=== PATIENT | female | born 1940 | race Caucasian/White ===

== ENCOUNTER 2017-10-10 15:04 | Emergency (ER) | payer MEDICARE, BC ==
--- NOTE | 2017-10-10 16:55 | CT ---
CT BRAIN WITHOUT CONTRAST: 10/10/17 HISTORY: Multiple falls, pain in the head and neck. FINDINGS: No evidence of acute infarct, hemorrhage, midline shift or abnormal extra-axial fluid collections see n. The ventricular size is greater than expected for the degree of atrophy. The basilar cisterns sheets nt. The bony calvarium is intact. The visualized paranasal sinuses and mastoid air cells are well aer ated. IMPRESSION: 1. No CT evidence of acute intracranial process. 2. Possibility of normal pressure hydrocephalus should be considered. POS: [facility]
[2017-10-10 17:00] LABS: #Basophils 0.1 thou/uL (0.0-0.2); #Eosinphils 0.2 thou/uL (0.0-0.7); #Lymphocytes 1.6 thou/uL (1.20-3.40); #Monocytes 0.5 thou/uL (0.11-0.59); #Neutrophils 5.7 thou/uL (1.40-6.50); %Basophils 0.9 % (0.0-1.0); %Eosinophils 2.8 % (0.0-10.0); %Lymphocytes 19.8 % (21.0-51.0); %Monocytes 6.5 % (0.0-10.0); Hemoglobin 12.5 g/dL (12.0-16.0); Mean Corpuscular HGB CONC 33.9 g/dL (32.0-36.0); Mean Corpuscular Hemoglobin 32.4 pg (27.0-31.0); Mean Corpuscular Volume 95.6 fl (81.0-99.0); Mean Platelet Volume 6.3 fL (7.4-10.4); Platelet Count 269 thou/uL (130-400); RBC Distribution Width 12.3 % (11.5-14.5); Red Blood Cell (RBC) Count 3.86 mill/uL (4.20-5.40); White Blood Cell (WBC) Count 8.2 thou/uL (4.8-10.8)
--- NOTE | 2017-10-10 17:15 | CT ---
CT CERVICAL SPINE WITH CORONAL AND SAGITTAL REFORMATIONS 10/10/17 HISTORY: Fall, neck pain. FINDINGS: There are degenerative changes in the cervical spine, most prominent at C6-7 level. A fracture of the base of the odontoid process of C2 vertebra is seen. No significant displacement is identified. IMPRESSION: Fracture of the odontoid process of C2 vertebra. Findings were discussed over the telephone with ER physician, Dr. Satnam Sims, at 4:40 p.m. POS: [facility]
[2017-10-10 17:22] LABS: INR-International Normal Ratio 1.1; PTT 31.7 SEC (22.9-36.1); Prothrombin Time 14.6 SEC (12.0-14.7)
[2017-10-10 17:23] LABS: ALT (SGPT) 27 U/L (8-55); AST (SGOT) 22 U/L (5-34); Albumin 4.5 g/dL (3.4-4.8); Alkaline Phosphatase 84 U/L (40-150); Anion Gap 17 mmol/L (10-20); BUN (Urea Nitrogen) 24 mg/dL (9.8-20.1); Bilirubin, Total 0.7 mg/dL (0.2-1.2); Calc. Creatinine Clearance 0 mL/min (70-130); Carbon Dioxide 23 mmol/L (23-31); Chloride 100 mmol/L (98-107); Estimated GFR-MDRD 53; Globulin 3.1 g/dL (2.4-3.5); Glucose 141 mg/dL (83-110); Potassium 3.8 mmol/L (3.5-5.1); Protein, Total 7.6 g/dL (6.0-8.3); Sodium 136 mmol/L (136-145)
[2017-10-10] MEDS ORDERED: HYDROcodone/Acetaminophen 10/325 mg Tablet ONE (17:49)
== END 2017-10-10 17:43 | disposition home or self-care (01) ==
LOC: ERS 15:04
DX: S12.112A Nondisplaced Type II dens fracture, initial encounter for closed fracture (principal); E21.3 Hyperparathyroidism, unspecified; E03.9 Hypothyroidism, unspecified; E78.5 Hyperlipidemia, unspecified; F41.9 Anxiety disorder, unspecified; I10 Essential (primary) hypertension; M19.90 Unspecified osteoarthritis, unspecified site; Z85.828 Personal history of other malignant neoplasm of skin; Z91.81 History of falling; W18.30XA Fall on same level, unspecified, initial encounter; Y92.096 Garden or yard of other non-institutional residence as the place of occurrence of the external cause
CPT/HCPCS: 36415; 70450; 72125; 80053; 85025; 85610; 85730

== ENCOUNTER 2017-10-29 08:58 | Outpatient (CLI) | payer MEDICARE, BC ==
--- NOTE | 2017-10-29 10:53 | RAD ---
CERVICAL SPINE THREE VIEWS: Date: 10-29-17 Comparison: None. Correlation made to CT of the cervical spine 10-10-17. History: Dens fracture noted on 10-10-17 CT. FINDINGS: On the lateral examination there is a subtle linear cortical defect involving the ventral aspect of t he dens just inferior to the anterior ring of C1, consistent with the previously noted dens fracture. There is no displacement seen. There is mild anterolisthesis of C5 on C6 measuring 3 mm. At C5-6 and C6-7 there is disc space narrowing with degenerative endplate change and anterior osteophyte formati on. C1-2 articulation appears normal on the frontal view. Multilevel midcervical spine facet hypertro phy noted. IMPRESSION: Evidence of fracture involving the dens as detailed above. No displacement seen. POS: [facility]
== END 2017-10-29 08:59 | disposition home or self-care (01) ==
LOC: TBSIIMAG 08:58
PROVIDERS: ATTEND Neurological Surgery
DX: S12.9XXA Fracture of neck, unspecified, initial encounter (principal)
CPT/HCPCS: 72040

== ENCOUNTER 2017-11-19 09:59 | Outpatient (CLI) | payer MEDICARE, BC ==
--- NOTE | 2017-11-19 10:51 | CT ---
CT CERVICAL SPINE WITHOUT CONTRAST: HISTORY: Followup fracture, S12.9XXA cervical fracture. COMPARISON: CT cervical spine 10/10/17. FINDINGS: Unchanged type II odontoid fracture. There is very low grade dorsal angulation. The angulation now measures approximately 148 degrees, previously 161 degrees. Very extensive motion artifact throughou t C2 and C3 and C4 which on the axial images makes it appear that there are fractures of the articula r pillars, although this is all likely artifactual. Lung apices are clear. Calcifications of the thyroid gland. IMPRESSION: Mild increased dorsal angulation type II odontoid fracture. No new acute superimposed fracture or ma lalignment, although this exam is limited due to motion artifact. No significant healing. POS: [facility]
== END 2017-11-19 10:00 | disposition home or self-care (01) ==
LOC: TBSIIMAG 09:59
PROVIDERS: ATTEND Neurological Surgery
DX: S12.9XXA Fracture of neck, unspecified, initial encounter (principal); S12.110A Anterior displaced Type II dens fracture, initial encounter for closed fracture
CPT/HCPCS: 72125

== ENCOUNTER 2018-01-27 11:39 | Outpatient (CLI) | payer MEDICARE, BC | END 2018-01-27 11:40 | disposition home or self-care (01) | LOC: BICRAD 11:39 | PROVIDERS: ATTEND Specialist | DX: M43.06 Spondylolysis, lumbar region (principal); M43.16 Spondylolisthesis, lumbar region; Z98.890 Other specified postprocedural states | CPT/HCPCS: 72110 ==

== ENCOUNTER 2018-03-01 21:15 | Emergency (ER) | payer MEDICARE, BC ==
[2018-03-01 21:58] LABS: #Basophils 0.1 thou/uL (0.0-0.2); #Eosinphils 0.1 thou/uL (0.0-0.7); #Lymphocytes 2.1 thou/uL (1.20-3.40); #Neutrophils 5.6 thou/uL (1.40-6.50); %Basophils 0.8 % (0.0-1.0); %Eosinophils 1.4 % (0.0-10.0); %Lymphocytes 23.9 % (21.0-51.0); %Monocytes 11.2 % (0.0-10.0); %Neutrophils 62.8 % (42.0-75.0); Hemoglobin 13.2 g/dL (12.0-16.0); Mean Corpuscular Hemoglobin 33.3 pg (27.0-31.0); Mean Corpuscular Volume 92.4 fl (81.0-99.0); Mean Platelet Volume 6.4 fL (7.4-10.4); Platelet Count 287 thou/uL (130-400); RBC Distribution Width 11.7 % (11.5-14.5); Red Blood Cell (RBC) Count 3.96 mill/uL (4.20-5.40)
[2018-03-01 22:20] LABS: ALT (SGPT) 24 U/L (8-55); AST (SGOT) 24 U/L (5-34); Albumin 4.8 g/dL (3.4-4.8); Alkaline Phosphatase 85 U/L (40-150); Anion Gap 16 mmol/L (10-20); BUN (Urea Nitrogen) 20 mg/dL (9.8-20.1); Bilirubin, Total 0.9 mg/dL (0.2-1.2); Calc. Creatinine Clearance 0 mL/min (70-130); Calcium 9.6 mg/dL (7.8-10.44); Carbon Dioxide 23 mmol/L (23-31); Chloride 91 mmol/L (98-107); Estimated GFR-MDRD 59; Globulin 3.2 g/dL (2.4-3.5); Glucose 106 mg/dL (83-110); Lipase 14 U/L (8-78); Sodium 126 mmol/L (136-145)
[2018-03-02 00:35] LABS: CKMB 2.5 ng/mL (0-6.6); Troponin I Less than 0.010 ng/mL (< 0.028)
[2018-03-02] MEDS ORDERED: Sucralfate 1 GM/10 ML UDCUP ONE (01:14)
[2018-03-02] MEDS ORDERED: Ondansetron ODT 4 MG TAB ONE (01:14)
[2018-03-02] MEDS ORDERED: Ziprasidone 20 MG VIAL ONE (01:14)
[2018-03-02] MEDS ORDERED: Mag-Al 1200 mg/1200 mg/30 ML UDCUP ONE (01:16)
[2018-03-02] MEDS ORDERED: Lidocaine Viscous Sol 2% 15 ml UD Cup ONE (01:16)
[2018-03-02] MEDS ORDERED: Famotidine/PF 20 mg/2ml Vial SLOW IVP SCH (01:30)
--- NOTE | 2018-03-02 08:47 | RAD ---
CHEST 2 VIEWS: COMPARISON: 06/15/17. HISTORY: Pain. FINDINGS: Atherosclerosis of the aorta. Normal cardiac silhouette. Lungs and pleural spaces are clear. Hyper inflation. No pneumothorax or osseous abnormalities. IMPRESSION: 1. Hyperinflation. Chronic changes. 2. Atherosclerosis. POS: [facility]
--- NOTE | 2018-03-03 14:15 | EKG ---
Test Reason : UPPER GI PAIN Blood Pressure : / mmHG Vent. Rate : 072 BPM Atrial Rate : 072 BPM P-R Int : 170 ms QRS Dur : 088 ms QT Int : 430 ms P-R-T Axes : 046 001 023 degrees QTc Int : 470 ms Normal sinus rhythm Minimal voltage criteria for LVH, may be normal variant Inferior infarct , age undetermined Abnormal ECG Confirmed by DAYANA COSTA ([id number]), industrial editor CHADD VELÁZQUEZ ([id number] on 03/03/2018 2:15:34 PM Referred By: Confirmed By:DAYANA COSTA
== END 2018-03-02 02:40 | disposition home or self-care (01) ==
LOC: ERS 21:15
DX: K27.9 Peptic ulcer, site unspecified, unspecified as acute or chronic, without hemorrhage or perforation (principal); E21.3 Hyperparathyroidism, unspecified; E03.9 Hypothyroidism, unspecified; E78.5 Hyperlipidemia, unspecified; I10 Essential (primary) hypertension; F41.9 Anxiety disorder, unspecified
CPT/HCPCS: 36415; 71046; 80053; 82553; 83690; 84484; 85025; 93005; 96374; J3486; Q0162; S0028

== ENCOUNTER 2018-03-18 12:14 | Outpatient (CLI) | payer MEDICARE, BC | END 2018-03-18 12:15 | disposition home or self-care (01) | LOC: BICRAD 12:14 | PROVIDERS: ATTEND Internal Medicine | DX: K59.00 Constipation, unspecified (principal); R11.10 Vomiting, unspecified; Z90.49 Acquired absence of other specified parts of digestive tract | CPT/HCPCS: 74018 ==

== ENCOUNTER 2018-05-09 14:04 | Outpatient (CLI) | payer MEDICARE, BC | END 2018-05-09 14:05 | disposition home or self-care (01) | LOC: BICMAMMO 14:04 | PROVIDERS: ATTEND Internal Medicine | DX: M81.0 Age-related osteoporosis without current pathological fracture (principal) | CPT/HCPCS: 77080 ==

== ENCOUNTER 2018-05-21 19:21 | Emergency (ER) | payer MEDICARE, BC ==
--- NOTE | 2018-05-21 20:53 | CT ---
CT OF HEAD NONCONTRAST: 05/21/18 CLINICAL INDICATION: Posttraumatic pain. FINDINGS: There is prominence of the ventricular system out of proportion to the size of cerebral sulci. No deepak dence of intracranial hemorrhage, mass effect or midline shift. There is left frontal scalp hematoma. IMPRESSION: 1. Prominent sized ventricular system, out of proportion to degree of parenchymal volume loss. T his can be seen in the setting of normal pressure hydrocephalus. Recommend clinical correlation in th is regard. 2. Left frontal scalp hematoma. 3. No acute intracranial hemorrhage or mass effect. POS: [facility]
== END 2018-05-21 20:46 | disposition home or self-care (01) ==
LOC: SCSER 19:21
DX: S09.90XA Unspecified injury of head, initial encounter (principal); S00.03XA Contusion of scalp, initial encounter; S00.12XA Contusion of left eyelid and periocular area, initial encounter; E21.3 Hyperparathyroidism, unspecified; E03.9 Hypothyroidism, unspecified; E78.5 Hyperlipidemia, unspecified; I10 Essential (primary) hypertension; F41.9 Anxiety disorder, unspecified; W20.1XXA Struck by object due to collapse of building, initial encounter
CPT/HCPCS: 70450

== ENCOUNTER 2018-08-18 09:36 | Outpatient (CLI) | payer MEDICARE, BC ==
--- NOTE | 2018-08-18 12:46 | MRI ---
CERVICAL SPINE MRI WITHOUT CONTRAST: HISTORY: Followup cervical spine fracture. Frequent falls. COMPARISON: None. CORRELATION: CT cervical spine 11/19/2017. FINDINGS: There are changes compatible with a remote fracture involving the C2 vertebral body. No significant STIR hyperintensity to suggest an acute fracture. Visualized brain parenchyma, cervicomedullary junction, cervical cord, and the upper thoracic cord fraire ve a normal size and signal intensity. C2-C3: No significant disk-osteophyte complex. No significant central canal stenosis. Foramen are patent. C3-C4: No significant disk-osteophyte complex. No significant central canal stenosis. Moderate rig ht foraminal narrowing due to degenerative change of the uncovertebral joint and to a lesser extent f acet hypertrophy. Mild left foraminal narrowing. C4-C5: Approximately 2 mm of anterolisthesis of C4 upon C5. No significant central canal stenosis. Degenerative changes in bilateral uncovertebral joints and left greater than right facet hypertrophy result in mild bilateral foraminal narrowing. C5-C6: Broad-based disk-osteophyte complex abuts the thecal sac. Ventral CSF signal intensity is ma intained. Mild central canal stenosis. Right neural foramen is patent. The left neural foramen is also patent. There is 2.3 mm of anterolisthesis of C5 upon C6. C6-C7: Broad-based disk-osteophyte complex without significant central canal stenosis. Right neural foramen is patent. Moderate left foraminal narrowing due to degenerative change of the uncovertebra l joint. C7-T1: No significant disk-osteophyte complex. No significant central canal stenosis. Neural kiel en are patent. IMPRESSION: 1. Old C2 fracture with separation of the fracture site at the level of the mid portion of the dens. 2. Varying degrees of central canal stenosis and foraminal narrowing of the cervical spine as detail ed above. POS: [facility]
--- NOTE | 2018-08-18 12:57 | MRI ---
MRI THORACIC SPINE WITHOUT CONTRAST: History: Fall. Neck fracture. Comparison: None. FINDINGS: The aortic contour is not aneurysmal. No retroperitoneal or periaortic adenopathy. There is no marrow infiltrative process. Moderate exaggerated thoracic kyphosis due to degenerative d isc disease. There is no neuroforaminal narrowing throughout the upper thoracic spine. T10-11: There is circumferential disc bulge with worsening left subcarinal zone causing moderate left sided neural foraminal narrowing. T11-12: There is circumferential disc bulge causing effacement of the ventral CSF space narrowing the spinal canal to 8 mm along with moderate bilateral neural foraminal narrowing with abutment of the e xiting nerve roots and traversing nerve roots bilaterally. T12-L1: There is circumferential disc bulge worse at the left moderate recess and subcarinal zone cau sing moderate left sided neural foraminal narrowing. There is also narrowing of the spinal canal to 7 mm at this level. IMPRESSION: 1. Moderate spondylosis lower thoracic spine with neural foraminal and spinal canal narrowing at T11- 12 and T12-L1. 2. Modic type I endplate changes at T11, T12, and L1. 3. No acute fracture or malalignment. POS: [facility]
== END 2018-08-18 09:37 | disposition home or self-care (01) ==
LOC: TBSIIMAG 09:36
PROVIDERS: ATTEND Physician Assistant Surgical
DX: R27.0 Ataxia, unspecified (principal); R29.6 Repeated falls; M47.814 Spondylosis without myelopathy or radiculopathy, thoracic region; M48.02 Spinal stenosis, cervical region; M48.04 Spinal stenosis, thoracic region; M48.05 Spinal stenosis, thoracolumbar region; M99.82 Other biomechanical lesions of thoracic region; M99.83 Other biomechanical lesions of lumbar region; M99.81 Other biomechanical lesions of cervical region
CPT/HCPCS: 72141; 72146

== ENCOUNTER 2018-10-03 08:56 | Outpatient (CLI) | payer MEDICARE, BC ==
--- NOTE | 2018-10-03 14:05 | MRI ---
MRI OF THE LUMBAR SPINE WITH AND WITHOUT CONTRAST: 10/03/18 HISTORY: M96.1 post laminectomy syndrome. COMPARISON: MRI of the lumbar spine from 2016. FINDINGS: The aortic contour is nonaneurysmal. Multifocal T2 hyperintense foci are present at the kidneys. No i ntraperitoneal adenopathy. No marrow infiltrative process. Modic type I end plate changes at T12-L1. There is increased fluid signal within the L4-5 disc which may be sequela of chronic micro motion and degenerative changes. Levels are as follows: T12-L1: Circumferential degenerative disc space height loss with large circumferential disc osteophyt e complex. This is worse in the left subforaminal and extraforaminal zones. There is severe left and moderate right sided neural foraminal narrowing. There is mild effacement of the ventral CSF space of the spinal canal measuring approximately 7 mm. L1-2: Moderate degenerative disc space height loss. Circumferential disc bulge. Bilateral subforamina l disc osteophyte complexes. Moderate facet arthropathy. Moderate left and moderate right sided neura l foraminal narrowing. Spinal canal not significantly narrowed. Mild effacement of the ventral CSF space. L2-3: Moderate degenerative disc space height loss. Circumferential disc osteophyte complex. Moderate facet arthropathy. Mild effacement of the ventral CSF space of the spinal canal measuring approximat sebas 9 mm. There is moderate to severe left and moderate right sided neural foraminal narrowing with a butment of the left exiting and traversing nerve roots. L3-4: Severe degenerative disc space height loss. Circumferential disc osteophyte complexes. Moderate to severe facet arthropathy. Severe bilateral neural foraminal narrowing with abutment of the exitin g and traversing nerve roots bilaterally. L4-5: There is anterolisthesis of L4 over L5 approximately 8 mm, slightly progressed from the compari son examination. Laminectomy changes. There is spinal fusion hardware at L4-S1. Severe bilateral neur al foraminal narrowing due to anterolisthesis as well as remodeling of the posterior superior end sneha te of L5 which is encroaching upon both neural foramina. There is severe bilateral neural foraminal n arrowing with abutment of both exiting and traversing nerve roots. L5-S1: There is anterolisthesis of L5 over S1 approximately 13 mm, which in 2016 measured approximate ly 7 mm. This has progressed from the comparison examination. Given the anterolisthesis, there is sev ere bilateral neural foraminal narrowing. There is abutment above the exiting and traversing nerve ro ots bilaterally. There is a seroma in the posterior elements of L4-L5 from prior surgery. IMPRESSION: Advanced degenerative changes as described above with increased anterolisthesis of L4/L5 and L5/S1 fr om the comparison examination. POS: [facility]
== END 2018-10-03 08:57 | disposition home or self-care (01) ==
LOC: BICMRI 08:56
PROVIDERS: ATTEND Specialist
DX: M99.23 Subluxation stenosis of neural canal of lumbar region (principal); M96.1 Postlaminectomy syndrome, not elsewhere classified; M47.816 Spondylosis without myelopathy or radiculopathy, lumbar region; M43.16 Spondylolisthesis, lumbar region
CPT/HCPCS: 72158; 82565

== ENCOUNTER 2018-12-18 15:12 | Emergency (ER) | payer MEDICARE, BC ==
--- NOTE | 2018-12-18 16:31 | RAD ---
PA CHEST AND RIGHT RIB SERIES: History: Fall, chest pain. Right rib pain. FINDINGS/IMPRESSION: The heart size is normal. The aorta is tortuous. The lungs are well expanded without focal areas of c onsolidation, pneumothorax or pleural effusions. There is a right 8th rib fracture. Bilateral humeral head prostheses are seen. Degenerative changes are present in the spine. POS: [facility]
== END 2018-12-18 17:00 | disposition home or self-care (01) ==
LOC: ERS 15:12
DX: S22.31XA Fracture of one rib, right side, initial encounter for closed fracture (principal); E03.9 Hypothyroidism, unspecified; E05.90 Thyrotoxicosis, unspecified without thyrotoxic crisis or storm; E78.5 Hyperlipidemia, unspecified; I10 Essential (primary) hypertension; F32.9 Major depressive disorder, single episode, unspecified; W19.XXXA Unspecified fall, initial encounter
CPT/HCPCS: 94799

== ENCOUNTER 2019-01-09 10:37 | Outpatient (CLI) | payer MEDICARE, BC ==
--- NOTE | 2019-01-09 11:01 | RAD ---
F4 views of the lumbar spine: 01/09/2019 COMPARISON: 01/27/2018 HISTORY: Intervertebral disc disorder with radiculopathy FINDINGS: Bilateral L4, L5, and S1 pedicle screws are present with vertically oriented interlocking r ods. Clips in the right upper quadrant suggest prior cholecystectomy. The patient is status post lami nectomy at L4 and L5. Anterolisthesis of L5 on S1 is noted measuring 1.8 cm on neutral imaging, 1.8 cm on flexion, and 1.6 cm on extension. Prominent degenerative change at L3-4 noted with disc space narrowing, degenerative endplate changes, and anterior osteophyte formation. There is probable anterolisthesis of L3 on L4 me asuring in the 8-9 mm range, stable on neutral, flexion, and extension imaging. No significant interval change. No acute fracture or dislocation. IMPRESSION: Postoperative and severe stable degenerative changes as detailed above.
== END 2019-01-09 10:38 | disposition home or self-care (01) ==
LOC: BICRAD 10:37
PROVIDERS: ATTEND Specialist
DX: M51.16 Intervertebral disc disorders with radiculopathy, lumbar region (principal); M47.26 Other spondylosis with radiculopathy, lumbar region; Z98.890 Other specified postprocedural states
CPT/HCPCS: 72110

== ENCOUNTER 2019-01-11 18:09 | Emergency (ER) | payer MEDICARE, BC ==
--- NOTE | 2019-01-11 18:44 | RAD ---
FRadiograph left foot 3 views: 01/11/2019 6:52 PM HISTORY: 78-year-old female with traumatic pain FINDINGS: There is an oblique fracture beginning at the mid-distal diaphysis to the neck of the fifth metatarsa l, with minimal displacement and no significant angulation. No dislocation. No other acute fracture. IMPRESSION: Acute, traumatic, essentially nondisplaced, spiral fracture from distal shaft to distal metaphysis of fifth metatarsal.
== END 2019-01-11 18:55 | disposition home or self-care (01) ==
LOC: SCSER 18:09
DX: S92.355A Nondisplaced fracture of fifth metatarsal bone, left foot, initial encounter for closed fracture (principal); E78.5 Hyperlipidemia, unspecified; F32.9 Major depressive disorder, single episode, unspecified; F41.9 Anxiety disorder, unspecified; E21.3 Hyperparathyroidism, unspecified; M19.90 Unspecified osteoarthritis, unspecified site; I10 Essential (primary) hypertension; K90.0 Celiac disease; K58.9 Irritable bowel syndrome, unspecified; Z85.828 Personal history of other malignant neoplasm of skin; X58.XXXA Exposure to other specified factors, initial encounter

== ENCOUNTER 2019-06-04 14:22 | Outpatient (CLI) | payer MEDICARE, BC ==
--- NOTE | 2019-06-04 15:40 | BD ---
BONE DENSITOMETRY USING DEXA: HISTORY: Osteoporosis. FINDINGS: Lumbar Spine: BMD (g/cm2) Hip: Femoral Neck: 0.801 T-Score: -0.4 Z-Score: 1.8 Total Femur: 1.017 T-Score: 0.6 Z-Score: 2.5 Left Forearm: UD 0.384 T-Score: -1.0 Z-Score: 1.0 Mid 0.434 T-Score: -3.2 Z-Score: -0.3 1/3 0.514 T-Score: -3.0 Z-Score: -0.1 Total 0.442 T-Score: -2.5 Z-Score: 0.2 Impression: Osteoporosis. POS: [facility]
== END 2019-06-04 14:23 | disposition home or self-care (01) ==
LOC: BICMAMMO 14:22
PROVIDERS: ATTEND Internal Medicine Endocrinology, Diabetes & Metabolism
DX: M81.0 Age-related osteoporosis without current pathological fracture (principal)
CPT/HCPCS: 77080

== ENCOUNTER 2020-03-11 13:20 | Outpatient (CLI) | payer MEDICARE, BC ==
--- NOTE | 2020-03-11 15:02 | MRI ---
MRI thoracic spine noncontrast: 03/11/2020 HISTORY: 79-year-old female with upper back pain and thoracic radiculopathy, status post fall 2 weeks ago. COMPARISON: 08/18/2018 FINDINGS: Exaggerated kyphosis. Mild to moderate degenerative disc disease throughout all levels, with disc-ost eophyte complexes protruding into the anterior aspect of the spinal canal at all levels from T2-3 through T12-L1. These are all broad-based, central and bilateral paracentral. The largest is at T12-L 1, which, together with mild bilateral degenerative facet hypertrophy and ligamentum flavum thickening, results in moderate central spinal canal stenosis. There is mild to moderate central spin al canal stenosis at T11-12. No other level of significant central spinal canal stenosis. There is moderate to severe right and severe left neural foraminal stenosis at T11-12. High-grade left neural foraminal stenosis at T12-L1. Mild Modic type I endplate marrow changes at T11-12, and more prominent mixed Modic type I and type III changes, especially on the left, at T12-L1. This has transi tioned from almost entirely Modic type I marrow edema on 08/18/2018, to a mixture of type I and type III changes now. Thoracic spinal cord is normal in size and signal. No syrinx. No evi cord com pression. Modic type I marrow edema also at T4-5, new or greater than on prior MRI. IMPRESSION: 1. Diffuse moderate thoracic spondylosis. 2. High-grade neural foraminal stenosis, and moderate central spinal canal stenosis, at T11-12 and T1 2-L1. 3. New Modic type I endplate degenerative bone marrow edema at T4-5. 4. Degenerative disc disease endplate marrow edema also at T11-12 and especially T12-L1. 5. No compression fracture
== END 2020-03-11 13:21 | disposition home or self-care (01) ==
LOC: TBSIIMAG 13:20
PROVIDERS: ATTEND Specialist
DX: M47.24 Other spondylosis with radiculopathy, thoracic region (principal); M48.04 Spinal stenosis, thoracic region; M48.05 Spinal stenosis, thoracolumbar region; R60.0 Localized edema; M51.34 Other intervertebral disc degeneration, thoracic region; M51.35 Other intervertebral disc degeneration, thoracolumbar region
CPT/HCPCS: 72146

== ENCOUNTER 2020-04-06 14:07 | Emergency (ER) | payer MEDICARE, BC, OTHER ==
[2020-04-07 15:30] LABS: SARS-CoV-2 MS2 Positive; SARS-CoV-2 N Gene Negative; SARS-CoV-2 S Gene Negative; SARS-CoV-2 orf1ab Negative
== END 2020-04-06 14:55 | disposition home or self-care (01) ==
LOC: ERS 14:07
DX: R21 Rash and other nonspecific skin eruption (principal); Z20.828 Contact with and (suspected) exposure to other viral communicable diseases; E03.9 Hypothyroidism, unspecified; E78.5 Hyperlipidemia, unspecified; I10 Essential (primary) hypertension; F32.9 Major depressive disorder, single episode, unspecified; G89.29 Other chronic pain
CPT/HCPCS: 99283; U0003; 87635

== ENCOUNTER 2020-06-15 10:57 | Emergency (ER) | payer MEDICARE, BC | END 2020-06-15 11:17 | disposition left against medical advice (07) | LOC: ERS 10:57 | DX: Z53.21 Procedure and treatment not carried out due to patient leaving prior to being seen by health care provider (principal) ==

== ENCOUNTER 2020-06-15 16:17 | Outpatient (CLI) | payer MEDICARE, OTHER ==
--- NOTE | 2020-06-15 16:37 | RAD ---
XR Femur Rt 2 View STANDARD INDICATION: Right-sided pain COMPARISON: None. FINDINGS: Bones: No acute fracture or subluxation is demonstrated. Soft tissues: Within normal limits. Joints: There is a right total knee prosthesis. There is mild osteoarthrosis of the right hip. There is posterior lateral spinal instrumentation at the L4-S1 vertebral level. IMPRESSION: No acute osseous abnormality.
== END 2020-06-15 16:18 | disposition home or self-care (01) ==
LOC: BICRAD 16:17
PROVIDERS: ATTEND Physician Assistant
DX: M79.651 Pain in right thigh (principal)

== ENCOUNTER 2020-06-28 13:44 | Outpatient (CLI) | payer BC, MEDICARE ==
--- NOTE | 2020-06-28 16:05 | BD ---
BONE DENSITOMETRY USING DEXA: Date: 06/28/2020 HISTORY: Postmenopausal screening for osteoporosis. FINDINGS: Left Forearm: BMD (g/cm2) UD 0.389 T-Score: -0.9 Z-Score: 1.2 Mid 0.451 T-Score: -2.8 Z-Score: 0.1 1/3 0.556 T-Score: -2.3 Z-Score: 0.7 Total 0.457 T-Score: -2.3 Z-Score: 0.6 Right Forearm: UD 0.351 T-Score: -1.6 Z-Score: 0.5 Mid 0.422 T-Score: -3.4 Z-Score: -0.4 /3 0.519 T-Score: -2.9 Z-Score: 0.1 Total 0.4222 T-Score: -2.9 Z-Score: -0.1 There has been interval improvement of 8.3% in the bone mineral density of the left forearm since . IMPRESSION: Osteoporosis. POS: [facility]
--- NOTE | 2020-06-28 16:14 | MMO ---
Bilateral MAMMO Bilat Screen [facility]. CLINICAL HISTORY: Patient is 79 years old and is seen for screening. The patient has the following family history of breast cancer: cousin female. The patient has no personal history of cancer. The patient has a history of Breast reduction in 2002. VIEWS: The views performed were: bilateral craniocaudal with tomosynthesis and bilateral mediolateral oblique with tomosynthesis. FILMS COMPARED: The present examination has been compared to prior imaging studies performed at [facility] on 05/11/2015, 07/12/2016 and 08/09/2017, and at [facility] on 05/04/2014. This study has been interpreted with the assistance of computer-aided detection. MAMMOGRAM FINDINGS: There are scattered fibroglandular densities. There are stable benign appearing calcifications seen in both breasts. There are no suspicious masses, suspicious calcifications, or new areas of architectural distortion. IMPRESSION: THERE IS NO MAMMOGRAPHIC EVIDENCE OF MALIGNANCY. A ROUTINE FOLLOW-UP MAMMOGRAM IN 1 YEAR IS RECOMMENDED. THE RESULTS OF THIS EXAM WERE SENT TO THE PATIENT. ACR BI-RADS Category 2 - Benign finding MAMMOGRAPHY NOTE: 1. A negative mammogram report should not delay a biopsy if a dominant of clinically suspicious mass is present. 2. Approximately 10% to 15% of breast cancers are not detected by mammography. 3. Adenosis and dense breasts may obscure an underlying neoplasm. Reported by: ALFREDO STNOE MD Electonically Signed: [id number]
== END 2020-06-28 13:45 | disposition home or self-care (01) ==
LOC: BICMAMMO 13:44
PROVIDERS: ATTEND Internal Medicine
DX: Z12.31 Encounter for screening mammogram for malignant neoplasm of breast (principal); M81.0 Age-related osteoporosis without current pathological fracture; Z80.3 Family history of malignant neoplasm of breast; Z98.890 Other specified postprocedural states
CPT/HCPCS: 77063; 77067; 77080

== ENCOUNTER 2021-07-04 14:38 | Outpatient (CLI) | payer MEDICARE | END 2021-07-04 14:39 | disposition home or self-care (01) | LOC: BICMAMMO 14:38 | PROVIDERS: ATTEND Internal Medicine | DX: Z12.31 Encounter for screening mammogram for malignant neoplasm of breast (principal); M81.0 Age-related osteoporosis without current pathological fracture; M85.832 Other specified disorders of bone density and structure, left forearm; Z80.3 Family history of malignant neoplasm of breast; Z98.890 Other specified postprocedural states | CPT/HCPCS: 77063; 77067; 77080 ==

== ENCOUNTER 2021-09-14 16:24 | Outpatient (CLI) | payer MEDICARE, OTHER | END 2021-09-14 16:25 | disposition home or self-care (01) | LOC: BICRAD 16:24 | PROVIDERS: ATTEND Internal Medicine | DX: M54.2 Cervicalgia (principal); M54.6 Pain in thoracic spine; R07.81 Pleurodynia; M25.511 Pain in right shoulder; M47.812 Spondylosis without myelopathy or radiculopathy, cervical region; M47.814 Spondylosis without myelopathy or radiculopathy, thoracic region; Z98.890 Other specified postprocedural states | CPT/HCPCS: 72040; 72072 ==

== ENCOUNTER 2021-10-24 12:10 | Outpatient (CLI) | payer MEDICARE | END 2021-10-24 12:11 | disposition home or self-care (01) | LOC: CT 12:10 | PROVIDERS: ATTEND Internal Medicine | DX: S09.90XA Unspecified injury of head, initial encounter (principal); Z98.890 Other specified postprocedural states; Z96.642 Presence of left artificial hip joint | CPT/HCPCS: 70450 ==

== ENCOUNTER 2021-11-23 11:16 | Outpatient (CLI) | payer MEDICARE | END 2021-11-23 11:17 | disposition home or self-care (01) | LOC: BICRAD 11:16 | PROVIDERS: ATTEND Physician Assistant | DX: S59.902A Unspecified injury of left elbow, initial encounter (principal); S59.912A Unspecified injury of left forearm, initial encounter; W19.XXXA Unspecified fall, initial encounter | CPT/HCPCS: 36415; 80053; 82550; 82728; 83540; 83550; 84466; 85025; 85046 ==

== ENCOUNTER 2023-09-18 11:24 | Outpatient (CLI) | payer OTHER | END 2023-09-18 11:25 | disposition home or self-care (01) | LOC: BICMAMMO 11:24 | PROVIDERS: ATTEND Internal Medicine | DX: Z12.31 Encounter for screening mammogram for malignant neoplasm of breast (principal); Z80.3 Family history of malignant neoplasm of breast; Z98.890 Other specified postprocedural states | CPT/HCPCS: 77063; 77067 ==

== ENCOUNTER 2025-05-20 10:09 | Outpatient (CLI) | payer OTHER | END 2025-05-20 10:10 | disposition home or self-care (01) | LOC: MRI 10:09 | PROVIDERS: ATTEND Neurological Surgery | DX: G91.2 (Idiopathic) normal pressure hydrocephalus (principal); R26.89 Other abnormalities of gait and mobility; R29.6 Repeated falls; M47.812 Spondylosis without myelopathy or radiculopathy, cervical region; M48.02 Spinal stenosis, cervical region; M48.04 Spinal stenosis, thoracic region; M51.34 Other intervertebral disc degeneration, thoracic region; M50.30 Other cervical disc degeneration, unspecified cervical region; I67.82 Cerebral ischemia; G93.89 Other specified disorders of brain; I73.9 Peripheral vascular disease, unspecified; M47.813 Spondylosis without myelopathy or radiculopathy, cervicothoracic region | CPT/HCPCS: 70551; 72141 ==

== ENCOUNTER 2025-05-27 08:52 | Day surgery (SDC) | payer OTHER ==
[2025-05-27] MEDS ORDERED: Sodium Bicarbonate 2.5 MEQ/5 ML SDV ONE (10:15)
== END 2025-05-27 12:20 | disposition home or self-care (01) ==
LOC: RAD 08:52
PROVIDERS: ATTEND Neurological Surgery
PROC: 009U3ZX Drainage of Spinal Canal, Percutaneous Approach, Diagnostic (ICD-10-PCS; principal; 2025-05-27)
DX: G91.2 (Idiopathic) normal pressure hydrocephalus (principal); G62.9 Polyneuropathy, unspecified; I12.9 Hypertensive chronic kidney disease with stage 1 through stage 4 chronic kidney disease, or unspecified chronic kidney disease; N18.9 Chronic kidney disease, unspecified; Z91.018 Allergy to other foods; Z79.899 Other long term (current) drug therapy
CPT/HCPCS: 62270

== ENCOUNTER 2025-06-25 13:48 | Outpatient (CLI) | payer OTHER | END 2025-06-25 13:49 | disposition home or self-care (01) | LOC: CT 13:48 | PROVIDERS: ATTEND Internal Medicine | DX: M25.552 Pain in left hip (principal); S32.592A Other specified fracture of left pubis, initial encounter for closed fracture | CPT/HCPCS: 72192 ==